=== PATIENT | female | born 1980 | race African-American/Black ===

== ENCOUNTER 2023-12-02 06:12 | Inpatient (IN) | payer MEDICARE, OTHER, SELFPAY ==
[2023-11-19 12:58] VITALS: BMI 32.1
[2023-11-25 09:33] LABS: INR 0.94; PT 12.4 Sec (11.4-14.6)
[2023-11-25 09:34] LABS: APTT 28.3 Sec (23.4-35.0)
[2023-12-02] VITALS (20 sets, daily range): BP systolic 101–148; BP diastolic 56–86; BMI 32.1
[2023-12-02] MEDS: HEPARIN 5000 UNITS SC (07:14)
[2023-12-02] MEDS: ENTEREG 12 MG PO (07:14)
[2023-12-02] MEDS: Pyridium 200 MG PO (07:14)
--- NOTE | 2023-12-02 12:05 | W.IMMPOSTOP ---
Addendum entered and electronically signed by Isaac Jin MD 12/02/23 12:19:
Patient's mother updated via phone conversation.
Original Note:
Surgical Immed Post Op Note
-
Primary Surgeon: Radha Jin MD
Assisting Surgeon: BOB Dykes
Pre-op Diagnosis: 1) internal intussusception 2) obstructive defecation
Post-op Diagnosis: same
Procedure Performed: 1) robotic rectopexy 2) flexible sigmoidoscopy 3) anal chemodenervation with Botox
Anesthesia Type: general plus local
Specimen / Cultures: none
Estimated Blood Loss: 25 cc
Complications: no immediate
Operative Findings: redundant rectosigmoid with deep pouch of Chicho
Hubbard, stents, ureteral ICG by Dr. Benitez of urology. R stent removed at end of case.
Will send to med surg.
Of note, patient has history of pain issues and thus post op pain control regimen is per recommended by her pain specialist Dr. Lindsay Mendes.
[2023-12-02] MEDS: DILAUDID 0.5 MG IV ×5 (13:41→20:51)
[2023-12-02 14:24] LABS: % Basophils 0.6 % (0-2); % Eosinophils 0.1 % (0-6); % Immature Granulocytes 0.3 % (0-0.5); % Lymphocytes 6.3 % (20.5-51.1); % Monocytes 1.2 % (1.7-9.3); % Neutrophils 91.5 % (42.2-75.2); Absolute Lymphocytes 0.5 10^3/uL (1.2-3.4); Absolute Monocytes 0.1 10^3/uL (0.1-0.6); Absolute Neutrophils 6.6 10^3/uL (1.4-6.5); Hemoglobin 11.1 g/dL (12.0-16.0); Mean Corp Hgb Conc. 32.6 g/dL (33.0-37.0); Mean Corpuscular Hgb 30.6 pg (27.0-31.0); Mean Corpuscular Volume 93.7 fL (81.0-99.0); Mean Platelet Volume 10.8 fL (7.4-10.4); Nucleated Red Blood Cells % 0 %; Platelet Count 189 10^3/uL (130-400); Red Blood Cell Count 3.63 10^6/uL (4.20-5.40); Red Cell Dist. Width 11.8 % (11.5-14.5); White Blood Cell Count 7.3 10^3/uL (4.8-10.8)
[2023-12-02] MEDS: NORMOSOL-R 1000 IV (14:36)
[2023-12-02 14:42] LABS: Blood Urea Nitrogen 4 mg/dl (7-17); Calcium 8.1 mg/dl (8.4-10.2); Carbon Dioxide 20 mmol/L (22-30); Chloride 108 mmol/L (98-107); Estimated Creatinine Clearance > 125 ml/min; Glucose 116 mg/dl (70-99); Potassium 3.6 mmol/L (3.5-5.1); Sodium 135 mmol/L (135-145); eGFR > 60.00
--- NOTE | 2023-12-02 15:13 | CON.HOSP ---
Consultation
-
Date/Time Consultation Requested: 12/02/2023
Date/Time Consultation Performed: 12/02/2023
Requesting Provider: Dr Jin
Performing Provider: Dr Livingston
Reason for Consultation: medical management fibromyalgia, chronic pain, asthma, obesity, among other
Family Physician
-
Family Physician: Evens De León
Chief Complaint
-
Medical management for migraine, depression, fibromyalgia, IBS, and pain syndrome.
History of Present Illness
Patient 43 years old female with past medical history of anxiety, asthma, chronic pain, depression, fibromyalgia, GERD, opiate abuse in the past, hyperlipidemia, irritable bowel syndrome, migraines, peripheral vascular disease, obesity presented to
the hospital for elective surgery by colorectal surgeon for rectopexy, bolus injection. Patient underwent robotic rectopexy today, flexible sigmoidoscopy anal chemodenervation with Botox by Dr. Jin and [place] and also urological procedure by
Emmanuel. Upon my evaluation, latest vital signs stable with blood pressure 113/65, heart rate 83, respiratory rate 13, temperature 97.3, pulse ox 100% on room air. Latest labs today indicate WBC 7.3, hemoglobin 11.1, platelet count 189, sodium 135,
potassium 3.6, chloride 108, bicarb 20, BUN 40 and creatinine 0.5, glucose 116. I was able to see her after her transfer from PACU to her regular room. She had just received some pain medications ordered by colorectal surgery. She feels
comfortable at the time. She does have some abdominal discomfort postop as expected. No chest pain or shortness of breath, no nausea vomiting. Mother at bedside as well as attending RN. She was referred to hospitalist for further evaluation.
Medical History
Past Medical History
Past Medical History: Reports Other (Anxiety, osteoarthritis, asthma, chronic back pain, chronic pain syndrome, carpal tunnel syndrome, colon polyps, depression, fibromyalgia, GERD, hemorrhoids, high blood pressure, opiate abuse, hyperlipidemia,
incontinence, irritable bowel syndrome with lactose intolerance, migraines, obesity, periph)
Past Surgical History: Reports Other (Fibroids, hysterectomy, laminectomy L4-L5.)
Social History
Tobacco: Former Smoker
Alcohol: Occasional
Drug: None
Family History
Family History: Reviewed & Not Pertinent
Allergies / Home Medications
Allergies reflects when Allergies were last updated in [facility].
Home Medications with original date entered in [facility]
Allergy/Medication List:
Allergies
Allergy/AdvReac Type Severity Reaction Status Date / Time
clonidine Allergy syncope Verified 12/02/23 06:42
prochlorperazine Allergy EXTRAPYRAMIDAL Verified 12/02/23 06:42
[From Compazine] SYMPTOMS
Home Medications
Nitroprusside With Lidocaine 1 applic topical TIDPRN PRN ANAL PAIN 11/28/23
acetaminophen 500 mg tablet 1,000 mg PO Q6H 11/28/23
albuterol sulfate 90 mcg/actuation aerosol inhaler (ProAir HFA) 2 puff inhalation 6XD PRN ASTHMA 11/28/23
azelastine 137 mcg (0.1 %) nasal spray aerosol 1 spray intranasal BID 11/28/23
baclofen 20 mg tablet 20 mg PO Q6H 11/28/23
bupropion HCl 150 mg 24 hr tablet, extended release 150 mg PO DAILY 11/28/23
cetirizine 10 mg tablet (Zyrtec) 10 mg PO HS 11/28/23
cholecalciferol (vitamin D3) 25 mcg (1,000 unit) tablet (Vitamin D3) 25 mcg PO HS 11/28/23
dicyclomine 10 mg capsule 10 mg PO QID PRN ABD CRAMPING 11/28/23
diphenoxylate-atropine 2.5 mg-0.025 mg tablet (Lomotil) 1 tab PO DAILY PRN DIARRHEA 11/28/23
estradiol 0.01% (0.1 mg/gram) vaginal cream 1 appful vaginal DAILY 11/28/23
famotidine 40 mg tablet (Pepcid) 40 mg PO DAILY 11/28/23
fluconazole 200 mg tablet 200 mg PO MOTH 11/28/23
fluticasone propionate 50 mcg/actuation nasal spray,suspension 1 spray intranasal Q12H 11/28/23
gabapentin 300 mg capsule 900 mg PO QID 11/28/23
hyoscyamine sulfate 0.125 mg tablet (Levsin) 0.125 mg PO PRN PRN ABD CRAMPING 11/28/23
ibuprofen 800 mg tablet 800 mg PO Q6H 11/28/23
loperamide 2 mg capsule 2 mg PO Q4H PRN DIARRHEA 11/28/23
lysine 1,000 mg tablet 2,000 mg PO HS 11/28/23
metoprolol succinate 25 mg tablet,extended release 24 hr 25 mg PO HS 11/28/23
metronidazole 500 mg tablet 500 mg PO PRE OP 11/28/23
modafinil 100 mg tablet (Provigil) 100 mg PO 0800,1300 11/28/23
montelukast 10 mg tablet (Singulair) 10 mg PO HS 11/28/23
multivitamin 1 tab PO HS 11/28/23
neomycin 500 mg tablet 500 mg PO PRE OP 11/28/23
ondansetron HCl 4 mg tablet 4 mg PO Q6H PRN NAUSEA 11/28/23
pantoprazole 40 mg tablet,delayed release (Protonix) 40 mg PO HS 11/28/23
rizatriptan 10 mg tablet (Maxalt) 10 mg PO PRN PRN MIGRAINES 11/28/23
sertraline 200 mg capsule 200 mg PO HS 11/28/23
simethicone 180 mg capsule 180 mg PO BID PRN GAS 11/28/23
sodium sul 1.479 gram-potas ch 0.188 gram-magnes sul 0.225 gram tablet (Sutab) 0 tab PO PRE OP 11/28/23
sulfasalazine 500 mg tablet 1,500 mg PO BID 11/28/23
tacrolimus 0.1 % topical ointment 1 applic topical DAILY ECZEMA 11/28/23
trazodone 100 mg tablet 100 mg PO HS PRN SLEEP 11/28/23
triamcinolone acetonide 0.025 % topical cream 1 applic topical DAILY ECZEMA 11/28/23
vitamin C 90 mg-zinc gluconate 15 mg-herbal complex no. 325 lozenges 1 wilfrid PO HS 11/28/23
zonisamide 100 mg capsule (Zonegran) 600 mg PO HS 11/28/23
Review of Systems
-
A 12 point Review of Systems was completed except as noted: Yes
Physical Exam
Vital Signs
Vital Signs
Temp Pulse Resp BP Pulse Ox
97.3 F 83 13 113/65 100
12/02/23 13:08 12/02/23 14:00 12/02/23 14:00 12/02/23 14:00 12/02/23 14:00
Physical exam:
General: Well Developed, Well Nourished and No Apparent Distress but overall sedated postanesthesia
HEENT: Normocephalic, Atraumatic and Moist Mucous Membranes
Respiratory: Clear to Auscultation; Negative Wheezes, Rales or Rhonchi
Cardiac: Regular Rhythm and S1/S2
GI: Postop abdominal findings. Soft; Tender and Nondistended
Musculoskeletal: No Clubbing, No Cyanosis and No Edema
Neuro: Awake, Alert and Oriented
Psych: Calm
Physical Exam
General: Other
Laboratory Results
-
Laboratory Results
12/02/23 14:16
12/02/23 14:15
PT 12.4 Sec (11.4-14.6) 11/25/23 07:14
INR 0.94 11/25/23 07:14
APTT 28.3 Sec (23.4-35.0) 11/25/23 07:14
Impression / Plan
-
IMPRESSION:
Patient 43 years old female with multiple medical problem admitted to the hospital for elective surgery due to internal intussusception, obstructive defecation, she underwent robotic rectopexy with flexible sigmoidoscopy and anal chemodenervation
with Botox. Hospitalist consulted for medical management and help with comanagement of her multiple medical problems.
PLAN:
Robotic rectopexy with flexible sigmoidoscopy and anal chemodenervation with Botox--> POD#0, continue postop care per CRS
Asthma--> stable, continue home inhalers
Hypertension--> continue Toprol and adjust medications according to blood pressure.
Depression--> continue bupropion
Hyperinsomnia--> continue modafinil
Psoriatic arthritis--> continue tacrolimus and triamcinolone creams
Migraines--> pain meds as needed
GERD--> continue PPI
Pain syndrome/CRPS-->continue oxycodone, baclofen, gabapentin, tizanidine. Discussed with Dr. Jin and discussed with outpatient pain services team recommend current regimen and try to avoid IV narcotics but if absolutely needed would use it once
a day as needed.
Obesity--> lifestyle changes modifications
DVT prophylaxis--> per surgery
CODE STATUS--> full code
[2023-12-02] MEDS: PROVIGIL PO (16:30)
[2023-12-02] MEDS: NEURONTIN 900 MG PO ×2 (16:30→20:38)
[2023-12-02] MEDS: ROXICODONE 10 MG PO (16:36)
--- NOTE | 2023-12-02 17:23 | W.SUR.POST ---
Surgical Immediate Post Op
Note
Pre Op Diagnosis: Rectocele and enterocele
Post Op Diagnosis: Rectocele and enterocele
Procedure Performed: Robotic bilateral ovarian cystectomy, uterosacral ligament suspension, culdoplasty/enterocele repair, posterior colporrhaphy with perineoplasty, cystoscopy, stent removal
Primary Surgeon: Rome Floyd MD
Anesthesia: General with ET Tube
Estimated Blood Loss: 50 cc
Drains/Shunts: Hubbard catheter
Specimens/Cultures: bilateral ovarian cysts
Doppler/Duplex/Angio (Y/N): N
Complications: none
Operative Findings: 3 right ovarian cysts, 1 left ovarian cyst
[2023-12-02] MEDS: LIORESAL PO (19:41)
[2023-12-02] MEDS: ZANAFLEX 2 MG PO (20:30)
[2023-12-02] MEDS: ZOLOFT 200 MG PO (20:39)
[2023-12-02] MEDS: ZONEGRAN 600 MG PO (20:39)
[2023-12-02] MEDS: TOPROL XL 25 MG PO (20:40)
[2023-12-02] MEDS: LIORESAL 20 MG PO (20:40)
[2023-12-02] MEDS: ZYRTEC 10 MG PO (20:40)
[2023-12-02] MEDS: SINGULAIR 10 MG PO (20:50)
[2023-12-03] VITALS (7 sets, daily range): BP systolic 91–114; BP diastolic 45–74; BMI 30.5
[2023-12-03] MEDS: ROXICODONE 10 MG PO ×3 (00:55→20:19)
[2023-12-03] MEDS: NORMOSOL-R 1000 IV (00:56)
[2023-12-03] MEDS: TYLENOL 650 MG PO ×4 (04:18→22:33)
[2023-12-03] MEDS: DILAUDID 0.5 MG IV ×2 (04:20→15:08)
[2023-12-03] MEDS: LIORESAL 20 MG PO ×4 (06:09→23:00)
--- NOTE | 2023-12-03 07:57 | W.PN.GYN ---
Today's Communication / Plan
-
1. remove pickett after her BMP results
Physician Note
-
Assessment and Plan:
43 yo woman POD 1 s/p robotic bilateral ovarian cystectomy, uterosacral ligament suspension, enterocele repair, posterior colporrhaphy with perineoplasty, cystoscopy, stent removal: patient is doing well and meeting postoperative milestones. She has
minimal vaginal bleeding and awaiting BMP to determine if her pickett can be removed today.
1. Postoperative Prolapse Care
-pads for light vaginal spotting and perineal ice packs
-BMP pending
-If Cr is normal, then remove pickett catheter
-UOP: adequate overnight
Subjective:
minimal vaginal spotting, no clots or heavy bleeding, ambulating in room, pain moderately controlled, has rectal and vaginal pressure.
Objective:
Intake and Output
12/01/23 12/02/23 12/03/23 12/04/23
06:59 06:59 06:59 06:59
Intake Total 300 / 300
Output Total 1850 / 1850
Balance -1550 / -1550
Intake:
IV fluids (Total) 300 / 300
Normosal 300 / 300
Output:
Urine, Pickett 1850 / 1850
Vital Signs
Temp Pulse Resp BP Pulse Ox
98.3 F 73 20 102/54 96
12/03/23 03:40 12/03/23 03:40 12/03/23 03:40 12/03/23 03:40 12/03/23 03:40
Exam:
Abdomen: soft, nontender, nondistended
Incisions: clean, dry, intact
: minimal spotting on her diaper
[2023-12-03 08:01] LABS: % Basophils 0.9 % (0-2); % Eosinophils 0.4 % (0-6); % Immature Granulocytes 0.3 % (0-0.5); % Lymphocytes 14.5 % (20.5-51.1); % Monocytes 6.5 % (1.7-9.3); % Neutrophils 77.4 % (42.2-75.2); Absolute Basophils 0.1 10^3/uL (0-0.2); Absolute Lymphocytes 1.1 10^3/uL (1.2-3.4); Absolute Monocytes 0.5 10^3/uL (0.1-0.6); Absolute Neutrophils 5.8 10^3/uL (1.4-6.5); Hemoglobin 10.2 g/dL (12.0-16.0); Mean Corp Hgb Conc. 31.9 g/dL (33.0-37.0); Mean Corpuscular Volume 94.1 fL (81.0-99.0); Mean Platelet Volume 10.5 fL (7.4-10.4); Nucleated Red Blood Cells % 0 %; Platelet Count 179 10^3/uL (130-400); White Blood Cell Count 7.5 10^3/uL (4.8-10.8)
[2023-12-03] MEDS: ZANAFLEX 2 MG PO ×2 (08:38→20:21)
[2023-12-03] MEDS: ENTEREG 12 MG PO (08:38)
[2023-12-03] MEDS: NEURONTIN 900 MG PO ×4 (08:38→23:00)
[2023-12-03] MEDS: PROVIGIL 100 MG PO ×2 (08:39→13:17)
[2023-12-03] MEDS: WELLBUTRIN XL (24 hour extended release) 150 MG PO (08:39)
[2023-12-03 08:51] LABS: Blood Urea Nitrogen 6 mg/dl (7-17); Calcium 8.4 mg/dl (8.4-10.2); Carbon Dioxide 19 mmol/L (22-30); Chloride 106 mmol/L (98-107); Estimated Creatinine Clearance 109 ml/min; Glucose 91 mg/dl (70-99); Potassium 3.5 mmol/L (3.5-5.1); Sodium 135 mmol/L (135-145); eGFR > 60.00
--- NOTE | 2023-12-03 10:46 | W.PN.CRS1 ---
Today's Communication / Plan
-
Advance diet
DC Hubbard
Out of bed
Pain control
Assessment/Plan
-
POD#1 Robotic bilateral ovarian cystectomy, uterosacral ligament suspension, culdoplasty/enterocele repair, posterior colporrhaphy with perineoplasty, cystoscopy, stent removal
1. Vitals normal.
2. Start on a clear liquid diet and advance to regular as tolerated.
3. Creatinine is normal and will remove Hubbard.
4. Lovenox tonight for DVT prophylaxis.
5. Out of bed as tolerated.
6. OR pathology pending.
7. Pain control: Gabapentin 900 4 times daily, baclofen 20 mg every 6, Zanaflex 2 mg p.o. twice daily, oxycodone 10 mg p.o. every 8 hours as needed, Dilaudid 0.5 mg IV twice daily as needed, this is per her pain management physician, Dr. Mendes.
8. Possible discharge later today if she is feeling up for it. If not likely tomorrow.
Subjective Data
Procedure
12/02/2023 - Robotic bilateral ovarian cystectomy, uterosacral ligament suspension, culdoplasty/enterocele repair, posterior colporrhaphy with perineoplasty, cystoscopy, stent removal
Subjective Data
Date of Service: December 03, 2023
Patient states she has some vaginal pain. She has occasionally had some abdominal pain overnight that comes and goes. She is not hungry but she is thirsty. She denies nausea or vomiting. She states she was straining to have a bowel movement this
morning.
Objective Data
-
Vital Signs
Temp Pulse Resp BP Pulse Ox
97.0 F 63 18 104/45 97
12/03/23 07:50 12/03/23 07:50 12/03/23 07:50 12/03/23 07:50 12/03/23 07:50
Intake & Output
12/02/23 12/03/23 12/04/23
06:59 06:59 06:59
Intake Total 300 / 300
Output Total 1849
Balance -1550 / -1550
Intake:
IV fluids (Total) 300 / 300
Normosal 300 / 300
Output:
Urine, Hubbard 1849
Lab Results
12/03/23 07:39
12/03/23 07:39
Physical Exam
-
General: No Acute Distress and AOx3
Abdomen: Soft, Non Distended and Non Tender
Skin: Warm and Dry
Incision: Clear, Dry, Intact
--- NOTE | 2023-12-03 11:24 | CM ---
Reviewed the chart notes and spoke with the patient at the bedside. The patient resides alone in a two story home with two steps to enter. Per patient, only DME is a CPAP machine for at night. The patient has had [facility] in past, but no SNF. The
patient confirmed her pharmacy of choice is the [facility]. The patient anticipates being discharged back to home with no identified needs. CM continues to be available to patient/family and is monitoring medical plan for
needs at discharge.
Plan: Discharge to home when medically stable.
[2023-12-03] MEDS: PEPCID 40 MG PO (12:16)
--- NOTE | 2023-12-03 14:27 | W.PN.HOSP.TC ---
Today's Communication/Plan
-
Advance diet as tolerated
Continue current care
Assessment / Plan
Assessment / Plan
Gen-AAOx3, NAD
HEENT-NC, AT, anicteric, clear oral mm
Neck-supple
CV-reg, no M, +S1/S2
Lungs-clear B/L
Abd-soft, NT, ND
Ext-no edema
Musculoskeletal-no cyanosis, clubbing
Skin-warm and dry
Neuro-grossly non-focal
Psych-calm, cooperative
Internal intussusception/obstructive defecation -stable after robotic rectopexy, flexible sigmoidoscopy, anal chemodenervation with Botox. Colorectal surgery recommends advancing diet as tolerated. Hubbard catheter removed today. Possible discharge
later today if pain is managed per surgery.
Mild intermittent asthma -stable.
Essential hypertension -stable.
Depression
Obesity due to excess calories
GERD
Migraine headaches
Psoriatic arthritis
Complex regional pain syndrome
Anticipated Discharge: Within 24 hours
Subjective/Interval History
-
Date of Service: December 03, 2023
Patient seen and examined. Complaining of perineal pain.
Objective Data
-
Labs:
Laboratory Results
12/03/23
07:39
WBC 7.5
Hgb 10.2 L
Hct 32.0 L
Plt Count 179
Sodium 135
Potassium 3.5
Chloride 106
Carbon Dioxide 19 L
BUN 6 L
Creatinine 0.7
Glucose 91
Calcium 8.4
Vital Signs:
Vital Signs
Temp Pulse Resp BP Pulse Ox
97.5 F 67 18 114/62 100
12/03/23 11:20 12/03/23 11:20 12/03/23 11:20 12/03/23 11:20 12/03/23 11:20
I&O
12/02/23 12/03/23 12/04/23
06:59 06:59 06:59
Intake Total 300 / 300
Output Total 1849 / 1849
Balance -1550 / -1550
Review of Systems
-
History Source: Patient
All other systems: Reviewed and negative
[2023-12-03] MEDS: NORMOSOL-R IV (15:37)
[2023-12-03] MEDS: LOVENOX 40 MG SC (17:27)
[2023-12-03] MEDS: AZULFIDINE 1500 MG PO (20:19)
[2023-12-03] MEDS: ENTEREG PO ×2 (20:20→20:24)
[2023-12-03] MEDS: SINGULAIR 10 MG PO (21:08)
[2023-12-03] MEDS: ZONEGRAN 600 MG PO (21:08)
[2023-12-03] MEDS: ZYRTEC 10 MG PO (21:08)
[2023-12-03] MEDS: ZOLOFT 200 MG PO (21:08)
[2023-12-03] MEDS: TOPROL XL 25 MG PO (21:09)
[2023-12-03] MEDS: PROTONIX 40 MG PO (21:10)
[2023-12-04 05:06] VITALS: BMI 30.3
[2023-12-04] MEDS: LIORESAL 20 MG PO ×2 (05:54→13:11)
[2023-12-04] MEDS: NEURONTIN 900 MG PO ×2 (05:54→13:11)
[2023-12-04 07:08] VITALS: BP 114/69
[2023-12-04] MEDS: ROXICODONE 10 MG PO (07:13)
[2023-12-04] MEDS: TYLENOL 650 MG PO (07:15)
[2023-12-04] MEDS: ENTEREG PO (08:38)
[2023-12-04] MEDS: AZULFIDINE 1500 MG PO (08:41)
[2023-12-04] MEDS: PEPCID 40 MG PO (08:42)
[2023-12-04] MEDS: WELLBUTRIN XL (24 hour extended release) 150 MG PO (08:42)
[2023-12-04] MEDS: PROVIGIL 100 MG PO ×2 (08:42→13:11)
[2023-12-04] MEDS: ZANAFLEX 2 MG PO (08:42)
--- NOTE | 2023-12-04 08:57 | PTCARENOTE ---
pt verbalized c/o multiple episodes of diarrhea overnight. specimen container placed under toilet seat and pt instructed on need for stool specimen. enhanced precautions initiated. will observe
--- NOTE | 2023-12-04 10:02 | W.PN.HOSP.TC ---
Today's Communication/Plan
-
Check stool studies
Assessment / Plan
Assessment / Plan
Gen-AAOx3, NAD
HEENT-NC, AT, anicteric, clear oral mm
Neck-supple
CV-reg, no M, +S1/S2
Lungs-clear B/L
Abd-soft, NT, ND
Ext-no edema
Musculoskeletal-no cyanosis, clubbing
Skin-warm and dry
Neuro-grossly non-focal
Psych-calm, cooperative
Internal intussusception/obstructive defecation -stable after robotic rectopexy, flexible sigmoidoscopy, anal chemodenervation with Botox. Colorectal surgery recommends advancing diet as tolerated. Hubbard catheter removed. Overall tolerating diet.
Acute colitis -with loose stools this morning. Stool C. difficile pending.
Mild intermittent asthma -stable.
Essential hypertension -stable.
Depression
Obesity due to excess calories
GERD
Migraine headaches
Psoriatic arthritis
Complex regional pain syndrome
Anticipated Discharge: Within 24 hours
Subjective/Interval History
-
Date of Service: December 04, 2023
Patient seen and examined. Complaining of loose stools.
Objective Data
-
Vital Signs:
Vital Signs
Temp Pulse Resp BP Pulse Ox
97.9 F 86 14 114/69 99
12/04/23 07:08 12/04/23 07:08 12/04/23 07:08 12/04/23 07:08 12/04/23 07:08
I&O
12/03/23 12/04/23 12/05/23
06:59 06:59 06:59
Intake Total 300 / 300 720 / 720
Output Total 1850 / 1850 2765 / 2765
Balance -1550 / -1550 -2044 / -2044
Review of Systems
-
History Source: Patient
All other systems: Reviewed and negative
--- NOTE | 2023-12-04 10:31 | W.PN.CRS1 ---
Today's Communication / Plan
-
C. difficile culture
Possible discharge later today
Assessment/Plan
-
POD#2 Robotic bilateral ovarian cystectomy, uterosacral ligament suspension, culdoplasty/enterocele repair, posterior colporrhaphy with perineoplasty, cystoscopy, stent removal
1.� Vitals normal.
2.� Tolerating a regular diet.
3.� Given diarrhea, will order C. difficile.
4.� Lovenox for DVT prophylaxis.
5.� Out of bed as tolerated.
6.� OR pathology pending.
7.� Pain control: Gabapentin 900 4 times daily, baclofen 20 mg every 6, Zanaflex 2 mg p.o. twice daily, oxycodone 10 mg p.o. every 8 hours as needed, Dilaudid 0.5 mg IV twice daily as needed, this is per her pain management physician, Dr. Mendes.
8.� Possible discharge later today.
Subjective Data
Procedure
12/02/2023 - Robotic bilateral ovarian cystectomy, uterosacral ligament suspension, culdoplasty/enterocele repair, posterior colporrhaphy with perineoplasty, cystoscopy, stent removal
Subjective Data
Date of Service: December 04, 2023
Patient states that she is having a low lot of diarrhea. She says she is using the bathroom every 30 minutes to 1 hour. She says she has had chronic diarrhea in the past but it had recently resolved and now has started up again. She denies nausea
or vomiting. She is urinating without difficulty. Her pain is controlled.
Objective Data
-
Vital Signs
Temp Pulse Resp BP Pulse Ox
97.9 F 86 14 114/69 99
12/04/23 07:08 12/04/23 07:08 12/04/23 07:08 12/04/23 07:08 12/04/23 07:08
Intake & Output
12/03/23 12/04/23 12/05/23
06:59 06:59 06:59
Intake Total 300 / 300 720 / 720
Output Total 0 / 0 2765 / 2765
Balance -1550 / -1550 -2044 / -2044
Intake:
Oral fluids 720 / 720
IV fluids (Total) 300 / 300 0 / 0
Normosal 300 / 300
IV piggybacks 0 / 0
Output:
Urine, Hubbard 1849 600 / 600
Urine, Voided 2164 / 216
Other:
Number of unmeasured liquid
stools
Rectum 3
Lab Results
12/03/23 07:39
12/03/23 07:39
Physical Exam
-
General: No Acute Distress and AOx3
Abdomen: Soft, Non Distended and Tender (Mild around incisions)
Skin: Warm and Dry
Incision: Clear, Dry, Intact
--- NOTE | 2023-12-04 11:25 | CM ---
Reviewed the chart notes. Per notes, possible discharge later today. Patient's CM continues to be available to patient/family and is monitoring medical plan for needs at discharge. Patient's mother to provide transportation home.
Plan: Discharge to home when medially stable.
--- NOTE | 2023-12-04 12:41 | W.DS.TRANS ---
DC Summary - Glass [employer]r
-
Discharge Instructions:
Discharge Diagnosis/Procedures Robotic bilateral ovarian cystectomy,
uterosacral ligament suspension, culdoplasty/
enterocele repair, posterior colporrhaphy with
perineoplasty, cystoscopy, robotic rectopexy,
flexible sigmoidoscopy, anal chemodenervation
with Botox
Diet Regular
Activity No strenuous activity
Additional Activity No lifting over 10 pounds
Driving Restrictions No driving while using narcotics
Bathing Restrictions OK to Shower
Wound Care Allow glue to naturally fall off
Pads for light vaginal spotting and perineal ice
packs
Instructions:
Stand-Alone Forms:
Changes to Home Medications: Yes
Discharge Medications:
DC Medications w/original date entered in [facility]
Nitroprusside With Lidocaine 1 applic topical TIDPRN PRN ANAL PAIN 11/28/23
acetaminophen 500 mg tablet 1,000 mg PO Q6H pain 11/28/23
albuterol sulfate 90 mcg/actuation aerosol inhaler (ProAir HFA) 2 puff inhalation 6XD PRN asthma 11/28/23
azelastine 137 mcg (0.1 %) nasal spray aerosol 1 spray intranasal BID Allergies 11/28/23
baclofen 20 mg tablet 20 mg PO Q6H Muscle Spasms 11/28/23
bupropion HCl 150 mg 24 hr tablet, extended release 150 mg PO DAILY Mental Health/Anxiety 11/28/23
cetirizine 10 mg tablet (Zyrtec) 10 mg PO HS Allergies 11/28/23
cholecalciferol (vitamin D3) 25 mcg (1,000 unit) tablet (Vitamin D3) 25 mcg PO HS Supplement 11/28/23
estradiol 0.01% (0.1 mg/gram) vaginal cream 1 appful vaginal DAILY Hormonal Agent 11/28/23
famotidine 40 mg tablet (Pepcid) 40 mg PO DAILY Gastrointestinal Issue 11/28/23
fluconazole 200 mg tablet 200 mg PO MOTH Infection 11/28/23
fluticasone propionate 50 mcg/actuation nasal spray,suspension 1 spray intranasal Q12H Allergies 11/28/23
gabapentin 300 mg capsule 900 mg PO QID Pain 11/28/23
hyoscyamine sulfate 0.125 mg tablet (Levsin) 0.125 mg PO PRN PRN ABD CRAMPING 11/28/23
ibuprofen 800 mg tablet 800 mg PO Q6H pain 11/28/23
lysine 1,000 mg tablet 2,000 mg PO HS Supplement 11/28/23
metoprolol succinate 25 mg tablet,extended release 24 hr 25 mg PO HS Blood Pressure 11/28/23
modafinil 100 mg tablet (Provigil) 100 mg PO 0800,1300 Neurological Condition 11/28/23
montelukast 10 mg tablet (Singulair) 10 mg PO HS Allergies 11/28/23
multivitamin 1 tab PO HS Supplement 11/28/23
ondansetron HCl 4 mg tablet 4 mg PO Q6H PRN NAUSEA 11/28/23
pantoprazole 40 mg tablet,delayed release (Protonix) 40 mg PO HS Gastrointestinal Issue 11/28/23
rizatriptan 10 mg tablet (Maxalt) 10 mg PO PRN PRN migraines 11/28/23
sertraline 200 mg capsule 200 mg PO HS Mental Health/Anxiety 11/28/23
simethicone 180 mg capsule 180 mg PO BID PRN GAS 11/28/23
sulfasalazine 500 mg tablet 1,500 mg PO BID Gastrointestinal Issue 11/28/23
tacrolimus 0.1 % topical ointment 1 applic topical DAILY ECZEMA 11/28/23
trazodone 100 mg tablet 100 mg PO HS PRN sleep 11/28/23
triamcinolone acetonide 0.025 % topical cream 1 applic topical DAILY ECZEMA 11/28/23
vitamin C 90 mg-zinc gluconate 15 mg-herbal complex no. 325 lozenges 1 wilfrid PO HS Supplement 11/28/23
zonisamide 100 mg capsule (Zonegran) 600 mg PO HS Seizures 11/28/23
oxycodone 10 mg tablet 10 mg PO Q8HPRN PRN breakthrough pain 12/04/23
tizanidine 2 mg tablet 2 mg PO BID Pain 12/04/23
Home Medication Changes
oxycodone 10 mg tablet 10 mg PO Q8HPRN PRN breakthrough pain 12/04/23
tizanidine 2 mg tablet 2 mg PO BID Pain 12/04/23
Your pain management physician, Dr. Mendes, has prescribed you the above medications
Pending Results: Yes
Additional Pending Results:
OR pathology
== END 2023-12-04 14:11 | disposition home or self-care (01) | DRG 742 ==
LOC: 2 SOUTH 06:12
PROVIDERS: Obstetrics & Gynecology; Physician Assistant; Specialist; ADMITTING PHYSICIAN Surgery; FAMILY PHYSICIAN Internal Medicine; OTHER PHYSICIAN Hospitalist
PROC: 0JQC3ZZ Repair Pelvic Region Subcutaneous Tissue and Fascia, Percutaneous Approach (ICD-10-PCS; 2023-12-02)
PROC: 0UB24ZZ Excision of Bilateral Ovaries, Percutaneous Endoscopic Approach (ICD-10-PCS; 2023-12-02)
PROC: 0T788DZ Dilation of Bilateral Ureters with Intraluminal Device, Via Natural or Artificial Opening Endoscopic (ICD-10-PCS; 2023-12-02)
PROC: 8E0W4CZ Robotic Assisted Procedure of Trunk Region, Percutaneous Endoscopic Approach (ICD-10-PCS; 2023-12-02)
PROC: 0TP98DZ Removal of Intraluminal Device from Ureter, Via Natural or Artificial Opening Endoscopic (ICD-10-PCS; 2023-12-02)
PROC: 0TSD4ZZ Reposition Urethra, Percutaneous Endoscopic Approach (ICD-10-PCS; 2023-12-02)
PROC: 0DSP4ZZ Reposition Rectum, Percutaneous Endoscopic Approach (ICD-10-PCS; 2023-12-02)
PROC: 3E0H7GC Introduction of Other Therapeutic Substance into Lower GI, Via Natural or Artificial Opening (ICD-10-PCS; 2023-12-02)
PROC: 0DJD8ZZ Inspection of Lower Intestinal Tract, Via Natural or Artificial Opening Endoscopic (ICD-10-PCS; 2023-12-02)
DX: N81.6 Rectocele (principal); K56.1 Intussusception; N81.5 Vaginal enterocele; N83.201 Unspecified ovarian cyst, right side; N83.202 Unspecified ovarian cyst, left side; G89.4 Chronic pain syndrome; J45.909 Unspecified asthma, uncomplicated; E66.9 Obesity, unspecified; M79.7 Fibromyalgia; Z87.891 Personal history of nicotine dependence; I10 Essential (primary) hypertension; F32.A Depression, unspecified; L40.50 Arthropathic psoriasis, unspecified; G43.909 Migraine, unspecified, not intractable, without status migrainosus; K21.9 Gastro-esophageal reflux disease without esophagitis; Z68.30 Body mass index [BMI] 30.0-30.9, adult
CPT/HCPCS: 88305; 36415; 80048; 85025; 85610; 85730; 86900; 86901; 87070; 87324; 87449; 94660; A4300; J0585; J1335

== ENCOUNTER → 2024-03-11 06:29 | Day surgery (SDC) | payer MEDICARE, OTHER, SELFPAY | LOC: GI 06:29 | PROVIDERS: ATTENDING PHYSICIAN Internal Medicine | DX: R19.4 Change in bowel habit (principal); K62.89 Other specified diseases of anus and rectum; K64.4 Residual hemorrhoidal skin tags; K63.89 Other specified diseases of intestine | CPT/HCPCS: 45331; 88305 ==

== ENCOUNTER → 2024-03-18 07:41 | Outpatient (REF) | payer MEDICARE, OTHER, SELFPAY | LOC: RAD 07:41 | PROVIDERS: ATTENDING PHYSICIAN Internal Medicine; FAMILY PHYSICIAN Internal Medicine; REFERRING PHYSICIAN Obstetrics & Gynecology | DX: R19.8 Other specified symptoms and signs involving the digestive system and abdomen (principal) | CPT/HCPCS: 74270 ==

== ENCOUNTER → 2024-04-05 16:01 | Outpatient (REF) | payer MEDICARE, OTHER, SELFPAY | LOC: RAD 16:01 | PROVIDERS: ATTENDING PHYSICIAN Internal Medicine; FAMILY PHYSICIAN Internal Medicine | DX: R19.8 Other specified symptoms and signs involving the digestive system and abdomen (principal) | CPT/HCPCS: 74019 ==

== ENCOUNTER → 2024-04-20 08:00 | Outpatient (REF) | payer MEDICARE, OTHER, SELFPAY | LOC: RAD 08:00 | PROVIDERS: ATTENDING PHYSICIAN Internal Medicine; FAMILY PHYSICIAN Internal Medicine; REFERRING PHYSICIAN Surgery | DX: R10.84 Generalized abdominal pain (principal); R11.0 Nausea; K59.9 Functional intestinal disorder, unspecified | CPT/HCPCS: 78264; A9541 ==

== ENCOUNTER 2025-03-31 06:25 | Day surgery (SDC) | payer MEDICARE, OTHER, SELFPAY ==
--- NOTE | 2025-03-31 09:49 | PTCARENOTE ---
Patient refused teds due to peripheral neuropathy. Patient does have on the SCD though. Will monitor patient.
[2025-03-31 09:50] VITALS: BMI 27.9
[2025-03-31 09:51] VITALS: BP 134/79
[2025-03-31] MEDS: NORMOSOL-R/PLASMALYTE-A 1000 IV (10:04)
[2025-03-31 11:27] VITALS: BP 100/58
[2025-03-31 11:30] VITALS: BP 104/58
[2025-03-31 11:45] VITALS: BP 106/60
[2025-03-31 12:00] VITALS: BP 99/58
[2025-03-31 12:15] VITALS: BP 136/82
== END 2025-03-31 12:53 | disposition home or self-care (01) ==
LOC: SDS 06:25
PROVIDERS: ATTENDING PHYSICIAN Surgery
DX: K59.4 Anal spasm (principal)
CPT/HCPCS: 46505; J0585

== ENCOUNTER 2025-07-07 06:17 | Day surgery (SDC) | payer MEDICARE, OTHER, SELFPAY | END 2025-07-07 14:34 | disposition home or self-care (01) | LOC: GI 06:17 | PROVIDERS: ATTENDING PHYSICIAN Internal Medicine | DX: D50.9 Iron deficiency anemia, unspecified (principal); R19.4 Change in bowel habit; K64.8 Other hemorrhoids; K29.70 Gastritis, unspecified, without bleeding | CPT/HCPCS: 45380; 43239; 88305; 88342 ==

== ENCOUNTER → 2025-07-14 08:42 | Outpatient (REF) | payer MEDICARE, OTHER, SELFPAY | LOC: RAD 08:42 | PROVIDERS: ATTENDING PHYSICIAN Internal Medicine; FAMILY PHYSICIAN Internal Medicine | DX: N81.6 Rectocele (principal) | CPT/HCPCS: 74270 ==